=== PATIENT | male | born 1940 | race Caucasian/White ===

== ENCOUNTER 2020-07-01 09:06 | Outpatient (CLI) | payer OTHER | END 2020-07-01 23:59 | disposition home or self-care (01) | LOC: VAS 09:06 | PROVIDERS: ATTEND Orthopaedic Surgery | DX: I73.9 Peripheral vascular disease, unspecified (principal) | CPT/HCPCS: 93922 ==

== ENCOUNTER 2023-06-23 10:07 | Outpatient (CLI) | payer OTHER ==
[~2023-06-23] VITALS: Ht 180.3 cm; Wt 79.4 kg
[2023-06-23] MEDS: albuterol 2.5 MG/3 ML nebule NEB PRN (10:42)
[2023-06-23 10:46] VITALS: PULSE 59; RESP 15; O2SAT 96
== END 2023-06-23 23:59 | disposition home or self-care (01) ==
LOC: RT 10:07
PROVIDERS: ATTEND Chiropractor
DX: J44.9 Chronic obstructive pulmonary disease, unspecified (principal)
CPT/HCPCS: 71046; 94060; 94760